=== PATIENT | female | born 1970 | race Caucasian/White ===

== ENCOUNTER 2016-10-03 19:24 | Emergency (ER) | payer BC ==
[~2016-10-03 19:24] MED LIST: ALPRAZOLAM0.5 M2 PO; AMBIEN10 M1 PO; ASPIRIN325 M2 PO; ASPIRIN325 M3 PO; ASPIRIN81 M1 PO; BENTYL20 MG PO; BUTRANS1 EAC3 TD; CYMBALTA30 MG PO; EFFEXOR XR75 M1 PO; EPIDRIN CAPSULE1 CAP; EVISTA60 M1 PO; FLEXERIL10 MG PO; FLONASE ALLERG9.9 ML; HYDROCODONE/APA1 TAB PO; INDOMETHACIN75 M1 PO; LEVAQUIN500 M1 PO; LEXAPRO10 MG; LEXAPRO20 MG PO; LIDODERM1 EACH TP; LIDODERM30 EA TP; LISINOPRIL10 M1 PO; MAXALT10 MG PO; MIRALAX12 EA PO; MUCINEX600 M1 PO; NEURONTIN300 M1 PO; NORCO 5-325 TA1 EACH PO; NORCO 7.5/325 T1 TAB PO; OMEPRAZOLE40 M2 PO; ONE-A-DAY WOME1 EAC5 PO; PAXIL20 MG PO; PLAVIX75 MG PO; PRENATAL1 TAB; RIZATRIPTAN10 M3 PO; SOMA350 MG PO; VALIUM5 M1 PO; VITAMIN D 22000 UNIT PO; VITAMIN D31000 UNI2 PO; VITAMIN D31000 UNI3 PO; VOLTAREN GEL 1100 GM TOP; WOMEN'S DAILY1 EAC6 PO; XANAX0.5 M1 PO; ZOLPIDEM TARTRA10 MG PO; [UNRECOGNIZED DRUG - OTHER] PO
[2016-10-03 21:33] LABS: ANION GAP 11 mmol/L (0-20); BLOOD UREA NITROGEN 14 mg/dl (6-24); CARBON DIOXIDE-VENOUS 30 mmol/L (22-32); CHLORIDE 105 mmol/l (96-110); CREATININE 0.81 mg/dl (0.50-1.10); GLUCOSE 108 mg/dL (70-110); SODIUM 142 mmol/L (135-145); eGFR VALUE FOR BLACK >90 mL/Min
== END 2016-10-03 22:32 ==
LOC: EDMED 19:24
PROVIDERS: Emergency Medicine
DX: S86.911A Strain of unspecified muscle(s) and tendon(s) at lower leg level, right leg, initial encounter (principal); R25.2 Cramp and spasm; I50.9 Heart failure, unspecified; Z79.82 Long term (current) use of aspirin; Z79.899 Other long term (current) drug therapy; X58.XXXA Exposure to other specified factors, initial encounter